=== PATIENT | female | born 1980 | race Caucasian/White ===

== ENCOUNTER 2018-03-02 11:58 | Emergency (ER) | payer OTHER, MEDICAID, SELFPAY ==
[2018-03-02 12:15] VITALS: BP 163/118; PULSE 100; RESP 16; TEMP 36.7; O2SAT 99
[2018-03-02] MEDS: KETOROLAC 60 MG/2 ML VIAL 30 MG IM (12:57)
[2018-03-02 13:54] VITALS: BP 167/108; PULSE 90; RESP 17; O2SAT 98
--- NOTE | 2018-03-02 18:43 | ED.SKABFB ---
HPI - Skin/Abscess/Foreign Bdy <Danya Corcoran, [employer]-BC - Last Filed: 03/02/18 18:48> General Chief complaint: Skin/Abscess/Foreign Body Stated complaint: states hemorhoid pain Time Seen by Provider: 03/02/18 12:31 Source: patient Mode of arrival: ambulatory Limitations: no limitations History of Present Illness HPI narrative: The patient is a 37-year-old female with history of chronic pain who presents with chief complaint of a hemorrhoid and hemorrhoid pain. She states she has been seen at other facility as well as her primary care provider for hemorrhoids and has an appointment with a surgeon coming up. She states she also has genital sores and she saw her scraper loader operator this morning who does not think it is herpes. She presents requesting to have a hemorrhoid removed as well as requesting pain medication. She states she is using steroid cream, antibiotic cream without success. She is not able to purchase a donut to sit on due to cost. She denies any fevers, chest pain, chills, shortness of breath. She does complain of pain and cramps shooting down her legs. She complains of dysuria but no urgency or frequency or flank pain. Related Data Home Medications Medication Instructions Recorded Confirmed buspirone 5 mg PO QAM 03/02/18 03/02/18 buspirone 10 mg PO QPM 03/02/18 03/02/18 clindamycin phosphate 1 applic TOPICAL DIRECTED 03/02/18 03/02/18 levonorgestrel-ethinyl estrad 1 tab PO QPM 03/02/18 03/02/18 [Introvale] metformin 500 mg PO BID 03/02/18 03/02/18 methocarbamol 750 mg PO TID 03/02/18 03/02/18 minocycline 100 mg PO DAILY 03/02/18 03/02/18 nabumetone 500 mg PO BID 03/02/18 03/02/18 omeprazole 40 mg PO DAILY 03/02/18 03/02/18 oxycodone-acetaminophen 1 tab PO BID 03/02/18 03/02/18 prazosin 2 mg PO QPM 03/02/18 03/02/18 pregabalin [Lyrica] 225 mg PO BID 03/02/18 03/02/18 promethazine 25 mg PO PRN PRN 03/02/18 03/02/18 venlafaxine 150 mg PO QPM 03/02/18 03/02/18 Previous Rx's Medication Instructions Recorded hydrocortisone [Proctosol HC] 1 applictn [place] BID-QID PRN #30 gram 03/02/18 Allergies Allergy/AdvReac Type Severity Reaction Status Date / Time Penicillins [PENICILLINS] Allergy Severe THROAT Unverified 07/29/17 11:55 SWELLING hydrocodone [HYDROCODONE] AdvReac Intermediate MIGRAINE, Unverified 07/29/17 11:55 VOMITING tramadol [TRAMADOL] AdvReac Intermediate MIGRAINE, Unverified 07/29/17 11:55 VOMITING Beta-Blockers AdvReac Mild LIGHT Unverified 07/29/17 11:55 (Beta-Adrenergic Bloc HEADACHES [BETA-BLOCKERS (BETA-ADRENERGIC BLOC] Review of Systems <LEANDRO Nj - Last Filed: 03/02/18 18:48> Review of Systems GENERAL: Denies chills, fatigue, malaise, fever, sweats. HEENT: Denies sinus pain, ear pain, sore throat, difficulty swallowing, dizziness. RESPIRATORY: Denies dyspnea, cough, wheezing, hemoptysis, sputum. CARDIOVASCULAR: Denies chest pain, palpitations, orthopnea, edema, GASTROINTESTINAL: Denies nausea, vomiting, abdominal pain, diarrhea, constipation, melena. : See HPI MUSCULOSKELETAL: denies weakness, joint pain, or bony pain SKIN: See HPI NEUROLOGIC: Denies weakness, headache, numbness, change in speech, confusion, seizures, incoordination. PSYCHIATRIC: No concerning psychosocial issues. 12 point review of systems is negative except for those stated above Exam <LEANDRO Nj - Last Filed: 03/02/18 18:48> Narrative Exam Narrative: GENERAL: Obese female lying on stretcher on side HEAD: Atraumatic. Normocephalic. No temporal or scalp tenderness. EYES: Pupils equal round and reactive. Extraocular motions intact. No scleral icterus. No injection or drainage. ENT: Nose without bleeding, purulent drainage or septal hematoma. Throat without erythema, tonsillar hypertrophy or exudate. Uvula midline. Airway patent. NECK: Trachea midline. No JVD or lymphadenopathy. Supple, nontender, no meningeal signs. CARDIOVASCULAR: Regular rate and rhythm without murmurs, gallops, or rubs. RESPIRATORY: Clear to auscultation. Breath sounds equal bilaterally. No wheezes, rales, or rhonchi. GASTROINTESTINAL: Abdomen soft, obese, non-tender, nondistended. No hepato-splenomegaly, or palpable masses. No guarding. Rectal exam performed with his Priscilla RN as wharfmaster. Noted to have external hemorrhoid at approximately 9:00 a.m. position. No erythema noted. EXTREMITIES: No clubbing, cyanosis, or edema. No joint tenderness, effusion, or edema noted. BACK: Nontender without deformity or crepitance. No flank tenderness. NEURO: AOx3. SKIN: Multiple small ulcerations noted in the perianal and genital region. No spreading erythema or discharge noted. Initial Vital Signs Initial Vital Signs: Vital Signs Temperature 98.1 F 03/02/18 12:15 Pulse Rate 100 H 03/02/18 12:15 Respiratory Rate 16 03/02/18 12:15 Blood Pressure 163/118 H 03/02/18 12:15 Pulse Oximetry 99 03/02/18 12:15 <Harmony Huynh DO - Last Filed: 03/03/18 07:58> Initial Vital Signs Initial Vital Signs: Vital Signs Temperature 98.1 F 03/02/18 12:15 Pulse Rate 100 H 03/02/18 12:15 Respiratory Rate 16 03/02/18 12:15 Blood Pressure 163/118 H 03/02/18 12:15 Pulse Oximetry 99 03/02/18 12:15 Course <LEANDRO Nj - Last Filed: 03/02/18 18:48> Orders Ordered: Discontinued Medications Ketorolac Tromethamine (Toradol) 30 mg IM NOW ONE Stop: 03/02/18 12:52 Last Admin: 03/02/18 12:57 Dose: 30 mg Vital Signs - 8 hr 03/02/18 12:15 03/02/18 13:54 Temperature 98.1 F Pulse Rate 100 H 90 Respiratory Rate 16 17 Blood Pressure 163/118 H Blood Pressure [Left Arm] 167/108 H Pulse Oximetry 99 98 <Harmony Huynh DO - Last Filed: 03/03/18 07:58> Orders Ordered: Discontinued Medications Ketorolac Tromethamine (Toradol) 30 mg IM NOW ONE Stop: 03/02/18 12:52 Last Admin: 03/02/18 12:57 Dose: 30 mg Vital Signs - 8 hr 03/02/18 12:15 03/02/18 13:54 Temperature 98.1 F Pulse Rate 100 H 90 Respiratory Rate 16 17 Blood Pressure 163/118 H Blood Pressure [Left Arm] 167/108 H Pulse Oximetry 99 98 MDM - Skin/Abscess/Foreign Bdy <STEVE Nj-BC - Last Filed: 03/02/18 18:48> Lab Data Point of Care Testing Test Results Negative MDM Narrative Medical decision making narrative: Patient presents with chief complaint of hemorrhoid pain. Her hemorrhoid does not appear incredibly inflamed or large at this point time. It appears that most of her pain is coming from her genital sores. Given the etiology, I offered to treat her for herpes simplex. Patient declined treatment at this point in time. We did take a swab to evaluate for a viral culture. She was treated with Toradol in the emergency department. I did give her prescription for rectal steroid. Discussed at length follow up with primary care as well as OBGYN. <Harmony Huynh DO - Last Filed: 03/03/18 07:58> Lab Data Point of Care Testing Test Results Negative Discharge Plan Departure Patient Disposition: Home Clinical Impression: Genital ulcer, female, Elevated blood pressure reading, Acute hemorrhoid Discharge Date/Time: 03/02/18 14:25 Interventions: ED Discharge Assessment Last Done: 03/02/18 14:24 Instructions: DI for Hemorrhoids Activity Restrictions/Additional Instructions: I am giving a prescription for hemorrhoid medication. Your HSV test will come back in 5-7 days. You have declined treatment until of the test results are in. Please follow-up with primary care provider as well as her OBGYN if needed. Prescriptions: New hydrocortisone [Proctosol HC] 2.5 % cream with perineal applicator 1 applictn NE BID-QID PRN (Reason: pain) Qty: 30 RF: 0 No Action buspirone 5 mg tablet 5 mg PO QAM RF: 0 minocycline 100 mg capsule 100 mg PO DAILY RF: 0 venlafaxine 150 mg capsule,extended release 24hr 150 mg PO QPM RF: 0 omeprazole 40 mg capsule,delayed release(DR/EC) 40 mg PO DAILY RF: 0 oxycodone-acetaminophen 5-325 mg tablet 1 tab PO BID RF: 0 methocarbamol 750 mg tablet 750 mg PO TID RF: 0 clindamycin phosphate 1 % gel 1 applic Topical DIRECTED RF: 0 promethazine 25 mg tablet 25 mg PO PRN PRN (Reason: Nausea) RF: 0 metformin 500 mg tablet extended release 24 hr 500 mg PO BID RF: 0 nabumetone 500 mg tablet 500 mg PO BID RF: 0 pregabalin [Lyrica] 225 mg capsule 225 mg PO BID RF: 0 prazosin 2 mg capsule 2 mg PO QPM RF: 0 buspirone 5 mg tablet 10 mg PO QPM RF: 0 levonorgestrel-ethinyl estrad [Introvale] 0.15 mg-30 mcg tablets,dose pack,3 month 1 tab PO QPM RF: 0 Referrals: Provider,Conversion [Non-Staff] - <Harmony Huynh DO - Last Filed: 03/03/18 07:58> Cosign ED Attending Cosmarleneature Attestation: I was immediately available in the department for consultation. Documentation has been reviewed. I agree with assessment and plan.
--- NOTE | 2018-03-02 18:48 | ED_ITS ---
HPI - Skin/Abscess/Foreign Bdy <Danya Corcoran, P[employer] UP-BC - Last Filed: 03/02/18 18:48> General Chief complaint: Skin/Abscess/Foreign Body Stated complaint: states hemorhoid pain Time Seen by Provider: 03/02/18 12:31 Source: patient Mode of arrival: ambulatory Limitations: no limitations History of Present Illness HPI narrative: The patient is a 37-year-old female with history of chronic pain who presents with chief complaint of a hemorrhoid and hemorrhoid pain. She states she has been seen at other facility as well as her primary care provider for hemorrhoids and has an appointment with a surgeon coming up. She states she also has genital sores and she saw her e mail system administrator this morning who does not think it is herpes. She presents requesting to have a hemorrhoid removed as well as requesting pain medication. She states she is using steroid cream, antibiotic cream without success. She is not able to purchase a donut to sit on due to cost. She denies any fevers, chest pain, chills, shortness of breath. She does complain of pain and cramps shooting down her legs. She complains of dysuria but no urgency or frequency or flank pain. Related Data Home Medications Medication Instructions Recorded Confirmed buspirone 5 mg PO QAM 03/02/18 03/02/18 buspirone 10 mg PO QPM 03/02/18 03/02/18 clindamycin phosphate 1 applic TOPICAL DIRECTED 03/02/18 03/02/18 levonorgestrel-ethinyl estrad 1 tab PO QPM 03/02/18 03/02/18 [Introvale] metformin 500 mg PO BID 03/02/18 03/02/18 methocarbamol 750 mg PO TID 03/02/18 03/02/18 minocycline 100 mg PO DAILY 03/02/18 03/02/18 nabumetone 500 mg PO BID 03/02/18 03/02/18 omeprazole 40 mg PO DAILY 03/02/18 03/02/18 oxycodone-acetaminophen 1 tab PO BID 03/02/18 03/02/18 prazosin 2 mg PO QPM 03/02/18 03/02/18 pregabalin [Lyrica] 225 mg PO BID 03/02/18 03/02/18 promethazine 25 mg PO PRN PRN 03/02/18 03/02/18 venlafaxine 150 mg PO QPM 03/02/18 03/02/18 Previous Rx's Medication Instructions Recorded hydrocortisone [Proctosol HC] 1 applictn [place] BID-QID PRN #30 gram 03/02/18 Allergies Allergy/AdvReac Type Severity Reaction Status Date / Time Penicillins [PENICILLINS] Allergy Severe THROAT Unverified 07/29/17 11:55 SWELLING hydrocodone [HYDROCODONE] AdvReac Intermediate MIGRAINE, Unverified 07/29/17 11: 55 VOMITING tramadol [TRAMADOL] AdvReac Intermediate MIGRAINE, Unverified 07/29/17 11:55 VOMITING Beta-Blockers AdvReac Mild LIGHT Unverified 07/29/17 11:55 (Beta-Adrenergic Bloc HEADACHES [BETA-BLOCKERS (BETA-ADRENERGIC BLOC] Review of Systems <LEANDRO Nj - Last Filed: 03/02/18 18:48> Review of Systems GENERAL: Denies chills, fatigue, malaise, fever, sweats. HEENT: Denies sinus pain, ear pain, sore throat, difficulty swallowing, dizziness. RESPIRATORY: Denies dyspnea, cough, wheezing, hemoptysis, sputum. CARDIOVASCULAR: Denies chest pain, palpitations, orthopnea, edema, GASTROINTESTINAL: Denies nausea, vomiting, abdominal pain, diarrhea, constipation, melena. : See HPI MUSCULOSKELETAL: denies weakness, joint pain, or bony pain SKIN: See HPI NEUROLOGIC: Denies weakness, headache, numbness, change in speech, confusion, seizures, incoordination. PSYCHIATRIC: No concerning psychosocial issues. 12 point review of systems is negative except for those stated above Exam <LEANDRO Nj - Last Filed: 03/02/18 18:48> Narrative Exam Narrative: GENERAL: Obese female lying on stretcher on side HEAD: Atraumatic. Normocephalic. No temporal or scalp tenderness. EYES: Pupils equal round and reactive. Extraocular motions intact. No scleral icterus. No injection or drainage. ENT: Nose without bleeding, purulent drainage or septal hematoma. Throat without erythema, tonsillar hypertrophy or exudate. Uvula midline. Airway patent. NECK: Trachea midline. No JVD or lymphadenopathy. Supple, nontender, no meningeal signs. CARDIOVASCULAR: Regular rate and rhythm without murmurs, gallops, or rubs. RESPIRATORY: Clear to auscultation. Breath sounds equal bilaterally. No wheezes , rales, or rhonchi. GASTROINTESTINAL: Abdomen soft, obese, non-tender, nondistended. No hepato- splenomegaly, or palpable masses. No guarding. Rectal exam performed with his Priscilla RN as flat surfacer jewel. Noted to have external hemorrhoid at approximately 9: 00 a.m. position. No erythema noted. EXTREMITIES: No clubbing, cyanosis, or edema. No joint tenderness, effusion, or edema noted. BACK: Nontender without deformity or crepitance. No flank tenderness. NEURO: AOx3. SKIN: Multiple small ulcerations noted in the perianal and genital region. No spreading erythema or discharge noted. Initial Vital Signs Initial Vital Signs: Vital Signs Temperature 98.1 F 03/02/18 12:15 Pulse Rate 100 H 03/02/18 12:15 Respiratory Rate 16 03/02/18 12:15 Blood Pressure 163/118 H 03/02/18 12:15 Pulse Oximetry 99 03/02/18 12:15 <Harmony Huynh DO - Last Filed: 03/03/18 07:58> Initial Vital Signs Initial Vital Signs: Vital Signs Temperature 98.1 F 03/02/18 12:15 Pulse Rate 100 H 03/02/18 12:15 Respiratory Rate 16 03/02/18 12:15 Blood Pressure 163/118 H 03/02/18 12:15 Pulse Oximetry 99 03/02/18 12:15 Course <LEANDRO Nj - Last Filed: 03/02/18 18:48> Orders Ordered: Discontinued Medications Ketorolac Tromethamine (Toradol) 30 mg IM NOW ONE Stop: 03/02/18 12:52 Last Admin: 03/02/18 12:57 Dose: 30 mg Vital Signs - 8 hr 03/02/18 12:15 03/02/18 13:54 Temperature 98.1 F Pulse Rate 100 H 90 Respiratory Rate 16 17 Blood Pressure 163/118 H Blood Pressure [Left Arm] 167/108 H Pulse Oximetry 99 98 <Harmony Huynh DO - Last Filed: 03/03/18 07:58> Orders Ordered: Discontinued Medications Ketorolac Tromethamine (Toradol) 30 mg IM NOW ONE Stop: 03/02/18 12:52 Last Admin: 03/02/18 12:57 Dose: 30 mg Vital Signs - 8 hr 03/02/18 12:15 03/02/18 13:54 Temperature 98.1 F Pulse Rate 100 H 90 Respiratory Rate 16 17 Blood Pressure 163/118 H Blood Pressure [Left Arm] 167/108 H Pulse Oximetry 99 98 MDM - Skin/Abscess/Foreign Bdy <STEVE Nj-BC - Last Filed: 03/02/18 18:48> Lab Data Point of Care Testing Test Results Negative MDM Narrative Medical decision making narrative: Patient presents with chief complaint of hemorrhoid pain. Her hemorrhoid does not appear incredibly inflamed or large at this point time. It appears that most of her pain is coming from her genital sores. Given the etiology, I offered to treat her for herpes simplex. Patient declined treatment at this point in time. We did take a swab to evaluate for a viral culture. She was treated with Toradol in the emergency department. I did give her prescription for rectal steroid. Discussed at length follow up with primary care as well as OBGYN. <Harmony Huynh DO - Last Filed: 03/03/18 07:58> Lab Data Point of Care Testing Test Results Negative Discharge Plan Departure Patient Disposition: Home Clinical Impression: Genital ulcer, female, Elevated blood pressure reading, Acute hemorrhoid Discharge Date/Time: 03/02/18 14:25 Interventions: ED Discharge Assessment Last Done: 03/02/18 14:24 Instructions: DI for Hemorrhoids Activity Restrictions/Additional Instructions: I am giving a prescription for hemorrhoid medication. Your HSV test will come back in 5-7 days. You have declined treatment until of the test results are in. Please follow-up with primary care provider as well as her OBGYN if needed. Prescriptions: New hydrocortisone [Proctosol HC] 2.5 % cream with perineal applicator 1 applictn [place] BID-QID PRN (Reason: pain) Qty: 30 RF: 0 No Action buspirone 5 mg tablet 5 mg PO QAM RF: 0 minocycline 100 mg capsule 100 mg PO DAILY RF: 0 venlafaxine 150 mg capsule,extended release 24hr 150 mg PO QPM RF: 0 omeprazole 40 mg capsule,delayed release(DR/EC) 40 mg PO DAILY RF: 0 oxycodone-acetaminophen 5-325 mg tablet 1 tab PO BID RF: 0 methocarbamol 750 mg tablet 750 mg PO TID RF: 0 clindamycin phosphate 1 % gel 1 applic Topical DIRECTED RF: 0 promethazine 25 mg tablet 25 mg PO PRN PRN (Reason: Nausea) RF: 0 metformin 500 mg tablet extended release 24 hr 500 mg PO BID RF: 0 nabumetone 500 mg tablet 500 mg PO BID RF: 0 pregabalin [Lyrica] 225 mg capsule 225 mg PO BID RF: 0 prazosin 2 mg capsule 2 mg PO QPM RF: 0 buspirone 5 mg tablet 10 mg PO QPM RF: 0 levonorgestrel-ethinyl estrad [Introvale] 0.15 mg-30 mcg tablets,dose pack,3 month 1 tab PO QPM RF: 0 Referrals: Provider,Conversion [Non-Staff] - <Harmony Huynh DO - Last Filed: 03/03/18 07:58> Cosign ED Attending Cosmarleneature Attestation: I was immediately available in the department for consultation. Documentation has been reviewed. I agree with assessment and plan.
--- NOTE | 2018-03-06 16:36 | PC.NURSE ---
Pt states that she is feeling about the same
== END 2018-03-02 14:25 | disposition home or self-care (01) ==
PROVIDERS: Emergency Provider Nurse Practitioner Family
DX: N76.6 Ulceration of vulva (principal); K64.9 Unspecified hemorrhoids; R03.0 Elevated blood-pressure reading, without diagnosis of hypertension
CPT/HCPCS: 81025; 87252; 99283; J1885

== ENCOUNTER 2019-12-25 12:16 | Emergency (ER) | payer OTHER, MEDICAID, SELFPAY ==
[2019-12-25 12:31] VITALS: BP 143/88; PULSE 100; RESP 18; TEMP 36.8; O2SAT 99; BMI 36.9
--- NOTE | 2019-12-25 12:44 | DI.RAD.S_ITS ---
PROCEDURE: XR FINGER LT MIN 2V INDICATIONS: index finger pain, foreignbody?, infection TECHNIQUE: AP hand, 2 views of the 2nd finger(s) acquired. COMPARISON: None. FINDINGS: Bones: No fractures or dislocations. No suspicious bony lesions. Soft tissues: No suspicious soft tissue calcifications. No radiopaque foreign bodies are seen. IMPRESSION: No radiopaque foreign bodies are seen. Dictated by: Luther Spencer M.D. on 12/25/2019 at 12:08 Approved by: Luther Spencer M.D. on 12/25/2019 at 12:08
[2019-12-25] MEDS: LIDO 1%/SOD BICARB 8.4% (10ML) 10 ML SYRINGE INJ (13:00)
--- NOTE | 2019-12-25 13:31 | PC.NURSE ---
practioner at bedside performing suture repair
[2019-12-25] MEDS: TET,DIPH,PERTUSS(ACELL),VAC/PF 0.5 ML SYRINGE IM (13:50)
--- NOTE | 2019-12-25 14:02 | ED_ITS ---
HPI - Extremity Injury (Upper) <TREVA Mercedes - Last Filed: 12/25/19 14:24> General Chief Complaint: Extremity Injury, Upper Stated Complaint: infection on lt pointer finger Time Seen by Provider: 12/25/19 12:27 Source: patient Mode of arrival: Ambulatory Limitations: no limitations History of Present Illness HPI narrative: Is a 39-year-old female, smoker, who has history of anxiety, PTSD, chronic back pain presents to ED with chief complain of left index finger pain for last 8-10 days. Patient reports she injured her affected finger when she was cleaning her boyfriend's car and when she reached under the seat and got a cut under distal finger tip from unknown object. Patient reports pain has been progressively worsening and today's worst. She denies fever, chills, vomi ting but reports nausea and contributes to anxiety. Patient reports pain is 5/10 and it is throbbing and gets worse when it is touched. Patient reports last tetanus immunization was in 2011. Patient reports is able to flexor finger and intact sensation in affected site. Right dominant hand. Patient currently takes metformin but for PCOS and denies having diabetes or other immunocompromised conditions. Related Data Home Medications Medication Instructions Recorded Confirmed buspirone 5 mg PO QAM 03/02/18 03/02/18 buspirone 10 mg PO QPM 03/02/18 03/02/18 clindamycin phosphate 1 applic TOPICAL DIRECTED 03/02/18 03/02/18 levonorgestrel-ethinyl estrad 1 tab PO QPM 03/02/18 03/02/18 [Introvale] metformin 500 mg PO BID 03/02/18 03/02/18 methocarbamol 750 mg PO TID 03/02/18 03/02/18 minocycline 100 mg PO DAILY 03/02/18 03/02/18 nabumetone 500 mg PO BID 03/02/18 03/02/18 omeprazole 40 mg PO DAILY 03/02/18 03/02/18 oxycodone-acetaminophen 1 tab PO BID 03/02/18 03/02/18 prazosin 2 mg PO QPM 03/02/18 03/02/18 pregabalin [Lyrica] 225 mg PO BID 03/02/18 03/02/18 promethazine 25 mg PO PRN PRN 03/02/18 03/02/18 venlafaxine 150 mg PO QPM 03/02/18 03/02/18 diazepam 12/25/19 Previous Rx's Medication Instructions Recorded hydrocortisone [Proctosol HC] 1 applictn GA BID-QID PRN #30 gram 03/02/18 clindamycin HCl 150 mg PO TID 7 Days #21 cap 12/25/19 clindamycin HCl 300 mg PO TID 7 Days #21 cap 12/25/19 Allergies Allergy/AdvReac Type Severity Reaction Status Date / Time Penicillins [PENICILLINS] Allergy Severe THROAT Unverified 07/29/17 11:55 SWELLING hydrocodone [HYDROCODONE] AdvReac Intermediate MIGRAINE, Unverified 07/29/17 11:55 VOMITING tramadol [TRAMADOL] AdvReac Intermediate MIGRAINE, Unverified 07/29/17 11:55 VOMITING Beta-Blockers AdvReac Mild LIGHT Unverified 07/29/17 11:55 (Beta-Adrenergic Bloc HEADACHES [BETA-BLOCKERS (BETA-ADRENERGIC BLOC] Review of Systems <TREVA Mercedes - Last Filed: 12/25/19 14:24> Review of Systems Narrative: General: Denies fever, chills, fatigue, malaise, sweats. Respiratory: Denies dyspnea, cough, wheezing, hemoptysis, sputum. Cardiovascular: Denies chest pain, palpitations, orthopnea, edema. Gastrointestinal: Denies (+) nausea, vomiting, abdominal pain, diarrhea, constipation, melena. Musculoskeletal: See HPI Skin: See HPI Neurologic: Denies weakness, headache, numbness, change in speech, confusion, seizures, incoordination. Psychiatric: Reports feeling anxious. Patient History <TREVA Mercedes - Last Filed: 12/25/19 14:24> Medical History PCOS (polycystic ovarian syndrome) (Acute) Social History Smoking Status: Current every day smoker Smoking Status: Current every day smoker alcohol intake frequency: 0-2 drinks per day Substance Use Type: does not use Exam <TREVA Mercedes - Last Filed: 12/25/19 14:24> Narrative Exam Narrative: General appearance: well developed, well nourished, in mild distress during exam when affected finger was palpated. Head: normocephalic, atraumatic, no scalp lesions, non-tender. ENT: Hearing grossly intact. Airway patent. Neck/Thyroid: neck supple, full range of motion, no visible masses or meningeal signs. No JVD, non-tender without lymphadenopathy. Skin: mild erythema and edematous left distal finger with 0.5 cm linear shallow laceration with light yellowish discoloration surrounding this. Warm to touch in affected finger. Heart: no clubbing, no cyanosis, no edema. S1 and S2 normal. RRR w/o murmurs, clicks, or bruits. Lungs: Breathing even and unlabored. No stridor. No accessory muscles used. Able to speak in full sentences. Chest: normal shape and expansion. Abdomen: non-obese, non-distended. Neurologic: alert and oriented. Cognitive exam, MANAGER SAS and PNS grossly intact on informal exam. Psych: good eye contact, normal affect. Initial Vital Signs Initial Vital Signs: Vital Signs Temperature 98.2 F 12/25/19 12:31 Pulse Rate 100 H 12/25/19 12:31 Respiratory Rate 18 12/25/19 12:31 Blood Pressure 143/88 H 12/25/19 12:31 Pulse Oximetry 99 12/25/19 12:31 Extrem Left upper extremity: hand Details: normal capillary refill, neuromotor exam normal, neurosensory exam normal, tendon exam normal, tenderness Location: of the 2nd digit Location: at the distal phalanx, vascular exam Details: radial pulse present and normal capillary refill, warmth Location: of the 2nd digit, swelling Location: of the 2nd digit Location: at the distal phalanx and laceration (distal index finger pad); no ecchymosis and no crepitus <Harmony Huynh, - Last Filed: 12/26/19 07:09> Initial Vital Signs Initial Vital Signs: Vital Signs Temperature 98.2 F 12/25/19 12:31 Pulse Rate 100 H 12/25/19 12:31 Respiratory Rate 18 12/25/19 12:31 Blood Pressure 143/88 H 12/25/19 12:31 Pulse Oximetry 99 12/25/19 12:31 Procedures <[facility] - Last Filed: 12/25/19 14:24> Abscess I/D I&D #1: Site: hand (left index finger pad) Side (if applicable): left Local Anesthetic: lidocaine 1% and with bicarb Amount of anesthesia used (mL): 1 Technique: incised with #11 blade Amount of fluid expressed (mL): 0.2 Irrigation: Yes Packing used?: none Complications: pain Scores <[facility] - Last Filed: 12/25/19 14:24> GCS [place] coma scale eye opening: Spontaneous [place] coma scale verbal response: Orientated [place] coma scale motor response: Obey commands Emelina coma scale total score: 15 Course <[facility] - Last Filed: 12/25/19 14:24> Orders Ordered: Discontinued Medications Diphtheria/Tetanus/Acell Pertussis (Adacel) 0.5 ml IM .ONCE ONE Stop: 12/25/19 13:22 Last Admin: 12/25/19 13:50 Dose: 0.5 ml Documented by: MAGY Lidocaine/Sodium Bicarbonate (Buffered Lidocaine 10 Ml Syr) 10 ml INJ NOW ONE Stop: 12/25/19 12:45 Last Admin: 12/25/19 13:00 Dose: 10 ml Documented by: MAGY Vital Signs Vital signs: Vital Signs - 8 hr 12/25/19 12:31 Temperature 98.2 F Pulse Rate 100 H Respiratory Rate 18 Blood Pressure 143/88 H Pulse Oximetry 99 <Harmony Huynh DO - Last Filed: 12/26/19 07:09> Orders Ordered: Discontinued Medications Diphtheria/Tetanus/Acell Pertussis (Adacel) 0.5 ml IM .ONCE ONE Stop: 12/25/19 13:22 Last Admin: 12/25/19 13:50 Dose: 0.5 ml Documented by: [email or web address] Lidocaine/Sodium Bicarbonate (Buffered Lidocaine 10 Ml Syr) 10 ml INJ NOW ONE Stop: 12/25/19 12:45 Last Admin: 12/25/19 13:00 Dose: 10 ml Documented by: MAGY Vital Signs Vital signs: Vital Signs - 8 hr 12/25/19 12:31 Temperature 98.2 F Pulse Rate 100 H Respiratory Rate 18 Blood Pressure 143/88 H Pulse Oximetry 99 MDM - Extremity Injury (Upper) <TREVA Mercedes - Last Filed: 12/25/19 14:24> Differential Diagnosis Differential diagnosis: Likely other (Finger abscess, cellulitis, foreign body, fracture, felon) Medical Records Attestation: I reviewed the patient's medical records. Imaging Data XR-Finger LT: Radiologist's Impression: [address] [id number] XRay Report Signed Patient: Apryl Sorensen LMR#: [id number] : 1980Acct:[id number] Age/Sex: 39 / FDate of Service: 12/25/19 Loc: ED Accession Number: [id number] Procedure: XR finger LT min 2V Ordering Provider: Ki Reyes PROCEDURE: XR FINGER LT MIN 2V INDICATIONS: index finger pain, foreignbody?, infection TECHNIQUE: AP hand, 2 views of the 2nd finger(s) acquired. COMPARISON: None. FINDINGS: Bones: No fractures or dislocations. No suspicious bony lesions. Soft tissues: No suspicious soft tissue calcifications. No radiopaque foreign bodies are seen. IMPRESSION: No radiopaque foreign bodies are seen. Dictated by: Luther Spencer M.D. on 12/25/2019 at 12:08 Approved by: Luther Spencer M.D. on 12/25/2019 at 12:08 [facility] Narrative Medical decision making narrative: Left index finger with mild warmth and erythema with light yellowish discoloration surrounding day shallow laceration in finger pad. Patient is able to flex and extend affected finger against resistance. Patient denies fever or chills and she is afebrile in ED. No active drainage appreciated. Increased discomfort when affected site was palpated. I & D affected finger pad and obtained very scant amount of purulent discharge and sent out wound culture which is pending. Please see procedural note. Patient tolerated well the procedure after affected finger was anesthetized by nerve block. Patient started on clindamycin 450 mg t.i.d. dose for 7 day course since patient has anaphylactic allergies to penicillin and reports is not able to tolerate doxycycline due to GI discomfort. Advised warm soak or pack several times a day. Return precautions were discussed with patient and patient advised to follow-up with primary care physician next couple of days for wound recheck. She verbalized understanding in agreement with treatment plan. Discharge Plan Departure Patient Disposition: Home Clinical Impression: Finger infection Discharge Date/Time: 12/25/19 13:56 Instructions: DI for Skin Abscess Activity Restrictions/Additional Instructions: You have been diagnosed with [left index finger abscess and infection. Scant amount of abscess has been drained with I & D and would culture is pending. You have received Tdap vaccination today. Please start clindamycin 450 mg 3 times a day for next 7 days.]. What to do: *Take your medications as directed. Clindamycin has been transmitted to [facility] in [place]. You can take [id number] Tylenol and or Motrin as needed for discomfort. You can take Percocet that you have for severe pain as needed. You can use warm pack or warm soak in clean warm water 2 to 4 times a day as needed to help with healing. *Follow up with your primary care provider in 2-3 days, call for an appointment. Let them know you were seen in the ED and that we asked you to be seen in follow up. *Return to ED if you have any new, worsening, or concerning symptoms, such as [fever, chills, increasing redness/warmth/swelling/pain, chest pain, breathing difficulty, unable to tolerate fluids or any acute concerns]. Prescriptions: New clindamycin HCl 150 mg capsule 150 mg PO TID 7 Days Qty: 21 RF: 0 clindamycin HCl 300 mg capsule 300 mg PO TID 7 Days Qty: 21 RF: 0 No Action diazepam 2 mg tablet RF: 0 buspirone 5 mg tablet 5 mg PO QAM RF: 0 minocycline 100 mg capsule 100 mg PO DAILY RF: 0 venlafaxine 150 mg capsule,extended release 24hr 150 mg PO QPM RF: 0 omeprazole 40 mg capsule,delayed release(DR/EC) 40 mg PO DAILY RF: 0 oxycodone-acetaminophen 5-325 mg tablet 1 tab PO BID RF: 0 methocarbamol 750 mg tablet 750 mg PO TID RF: 0 clindamycin phosphate 1 % gel 1 applic Topical DIRECTED RF: 0 promethazine 25 mg tablet 25 mg PO PRN PRN (Reason: Nausea) RF: 0 metformin 500 mg tablet extended release 24 hr 500 mg PO BID RF: 0 nabumetone 500 mg tablet 500 mg PO BID RF: 0 pregabalin [Lyrica] 225 mg capsule 225 mg PO BID RF: 0 prazosin 2 mg capsule 2 mg PO QPM RF: 0 buspirone 5 mg tablet 10 mg PO QPM RF: 0 levonorgestrel-ethinyl estrad [Introvale] 0.15 mg-30 mcg tablets,dose pack,3 month 1 tab PO QPM RF: 0 hydrocortisone [Proctosol HC] 2.5 % cream with perineal applicator 1 applictn GA BID-QID PRN (Reason: pain) Qty: 30 RF: 0 Referrals: Lily Macdonald DO [Primary Care Provider] - <Harmony Huynh DO - Last Filed: 12/26/19 07:09> Cosign ED Attending Lucyature Attestation: I was immediately available in the department for consultation. Documentation has been reviewed. I agree with assessment and plan.
== END 2019-12-25 13:56 | disposition home or self-care (01) ==
PROVIDERS: Emergency Provider Nurse Practitioner Family; PCP Family Medicine
DX: L08.9 Local infection of the skin and subcutaneous tissue, unspecified (principal); R11.0 Nausea; F41.9 Anxiety disorder, unspecified; Z23 Encounter for immunization
CPT/HCPCS: 73140; 87070; 87075; 87077; 87147; 87186; 87205; 90471; 99284; 90715

== ENCOUNTER 2020-08-04 00:42 | Emergency (ER) | payer OTHER, MEDICAID, SELFPAY ==
[2020-08-04 00:54] VITALS: BP 162/85; PULSE 107; RESP 23; TEMP 36.8; O2SAT 100; BMI 35.5
--- NOTE | 2020-08-04 01:08 | ED_ITS ---
HPI - General Adult General Chief complaint: Extremity Problem,Nontraumatic Stated complaint: HANDS SWOLLEN/ PAINFUL Time Seen by Provider: 08/04/20 01:08 Source: patient Mode of arrival: Ambulatory Limitations: no limitations History of Present Illness HPI narrative: 40-year-old woman with a history of PTSD, depression, anxiety, chronic low back pain, obesity, untreated hypertension, and fibromyalgia presents with worsening bilateral hand pain. She was seen at [facility] on August 01 with complaints of right hand pain and some right shoulder pain. 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 Four days after that injury was the visit to the [facility] where she was diagnosed with hand pain with negative x-rays. She notes that the pain has been getting worse and now is associated with with increased redness and warmth worse on the palmar surface of the right 5th finger but involving the right 4th finger and now the left hand is swollen with erythema extending toward the wrist involving the entire dorsum and palmar surface of the hand. She states she took off some acrylic nails approximately a month ago and she thought that that might be the source of the infection in her hands. While nails do look somewhat abused the cuticles themselves look relatively healthy without significant paronychia infections. She complains of chills and malaise. Mild diffuse abdominal pain nausea but no vomiting or diarrhea. She has no complaints with her legs or feet. She denies recreational drug use. She currently is living out of her car. She denies headache. She denies specific trauma to the hands and does not note bug bites has not been doing gardening work and has no other obvious reason for why her hands are so painful and swollen. Related Data Home Medications Medication Instructions Recorded Confirmed buspirone 5 mg PO QAM 03/02/18 03/02/18 buspirone 10 mg PO QPM 03/02/18 03/02/18 clindamycin phosphate 1 applic TOPICAL DIRECTED 03/02/18 03/02/18 levonorgestrel-ethinyl estrad 1 tab PO QPM 03/02/18 03/02/18 [Introvale] metformin 500 mg PO BID 03/02/18 03/02/18 methocarbamol 750 mg PO TID 03/02/18 03/02/18 minocycline 100 mg PO DAILY 03/02/18 03/02/18 nabumetone 500 mg PO BID 03/02/18 03/02/18 omeprazole 40 mg PO DAILY 03/02/18 03/02/18 oxycodone-acetaminophen 1 tab PO BID 03/02/18 03/02/18 prazosin 2 mg PO QPM 03/02/18 03/02/18 pregabalin [Lyrica] 225 mg PO BID 03/02/18 03/02/18 promethazine 25 mg PO PRN PRN 03/02/18 03/02/18 venlafaxine 150 mg PO QPM 03/02/18 03/02/18 diazepam 12/25/19 Previous Rx's Medication Instructions Recorded hydrocortisone [Proctosol HC] 1 applictn AR BID-QID PRN #30 gram 03/02/18 clindamycin HCl 300 mg PO TID #30 cap 08/04/20 sulfamethoxazole-trimethoprim 1 tab PO BID #20 tab 08/04/20 [Bactrim DS] Allergies Allergy/AdvReac Type Severity Reaction Status Date / Time Penicillins [PENICILLINS] Allergy Severe THROAT Unverified 07/29/17 11:55 SWELLING hydrocodone [HYDROCODONE] AdvReac Intermediate MIGRAINE, Unverified 07/29/17 11:55 VOMITING tramadol [TRAMADOL] AdvReac Intermediate MIGRAINE, Unverified 07/29/17 11:55 VOMITING Beta-Blockers AdvReac Mild LIGHT Unverified 07/29/17 11:55 (Beta-Adrenergic Bloc HEADACHES [BETA-BLOCKERS (BETA-ADRENERGIC BLOC] Review of Systems Review of Systems Narrative: Remainder of complete review of systems is otherwise unremarkable except for that included in the HPI. Patient History Medical History (Updated 08/04/20 @ 05:09 by Arminda Warren MD) Anxiety Chronic back pain GERD (gastroesophageal reflux disease) PCOS (polycystic ovarian syndrome) PTSD (post-traumatic stress disorder) Surgical History (Updated 08/04/20 @ 01:46 by Arminda Warren MD) History of section History of hysterectomy History of repair of dehiscence of vaginal cuff History of tonsillectomy and adenoidectomy Social History Smoking Status: Current every day smoker Smoking Status: Current every day smoker alcohol intake frequency: 0-2 drinks per day Substance Use Type: does not use Exam Narrative Exam Narrative: General: Dramatic affect of behavior, bilateral hand pain moaning enough to make full communication challenging HEENT: Moist mucous membranes, normal sclera with reactive pupils, Respiratory: Lungs are clear to auscultation, no wheezing no rales no rhonchi. Full and symmetrical air movement Cardiac: Regular rate and rhythm no murmurs no bruits Abdomen: Soft, nontender, good bowel tones, no flank pain Skin: Warm and dry, no rashes Neurologic: Grossly neurologically intact with no obvious asymmetries or abnormalities Extremities: Right hand with significant erythema and swelling on the palmar surface of the right small finger extending to the palmar surface of the right ring finger with significant tenderness with extension of the fingers and mild tenderness with flexion and extension of the right wrist. There is no erythema extending up the forearm. Left hand in a glove distribution fullness warmth redness with a demarcating mine at approximately the wrist and no obvious skin breakdown trauma or bug bites. Nails are dystrophic but paronychia do not appear infected. Feet are not involved with findings at all. Her she has some right shoulder tenderness with palpation and range of motion however she has no other large joint pain or active synovitis Psych: Poor insight, difficult communicating with her dramatic level of pain Initial Vital Signs Initial Vital Signs: Vital Signs Temperature 98.2 F 08/04/20 00:54 Pulse Rate 107 H 08/04/20 00:54 Respiratory Rate 23 08/04/20 00:54 Blood Pressure 162/85 H 08/04/20 00:54 Pulse Oximetry 100 08/04/20 00:54 Course Orders Ordered: ED Orders 08/04/20 01:25 C-Reactive Protein Quant Stat Complete Blood Count AUTO DIFF Stat Comprehensive Metabolic Panel Stat Erythrocyte Sedimentation Rate Stat Lactate (Lactic Acid) Stat Magnesium Stat 08/04/20 01:34 Blood Culture Stat 08/04/20 02:41 COVID19 - 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/PCR) Stat 08/04/20 02:58 XR hand LT min 3V Stat XR hand RT min 3V Stat Discontinued Medications Sodium Chloride (Normal Saline 0.9%) 1,000 mls @ 1,000 mls/hr IV BOLUS ONE Stop: 08/04/20 02:21 Last Infusion: 08/04/20 02:45 Dose: 0 mls/hr Documented by: Admin: 08/04/20 01:32 Dose: 1,000 mls/hr Documented by: BOBBY Ceftriaxone Sodium/Dextrose (Rocephin) 2 gm in 50 mls @ 100 mls/hr IV NOW ONE Stop: 08/04/20 03:08 Last Infusion: 08/04/20 03:50 Dose: 0 mls/hr Documented by: Admin: 08/04/20 02:46 Dose: 100 mls/hr Documented by: BOBBY Vancomycin HCl/Dextrose (Vancomycin) 1,500 mg in 300 mls @ 200 mls/hr IV NOW O NE Stop: 08/04/20 04:08 Last Admin: 08/04/20 03:49 Dose: 200 mls/hr Documented by: JENS Ketorolac Tromethamine (Ketorolac 60 Mg/2 Ml Vial) 15 mg IV NOW ONE Stop: 08/04/20 01:23 Last Admin: 08/04/20 01:31 Dose: 15 mg Documented by: BOBBY Ondansetron HCl (Ondansetron 4 Mg/2 Ml Inj) 4 mg IV NOW ONE Stop: 08/04/20 01:23 Last Admin: 08/04/20 01:31 Dose: 4 mg Documented by: BOBBY Vital Signs Vital signs: Vital Signs - 8 hr 08/04/20 00:54 Temperature 98.2 F Pulse Rate 107 H Respiratory Rate 23 Blood Pressure 162/85 H Pulse Oximetry 100 Medical Decision Making Medical Records Medical records reviewed: Yes I reviewed the patient's medical records. Lab Data Lab results reviewed: Yes I reviewed the patient's lab results. Result diagrams: 08/04/20 01:25 08/04/20 01:25 Labs: Lab Results 08/04/20 08/04/20 08/04/20 Range/Units 01:25 01:25 01:25 WBC 14.7 H (4.5-11.0) X10^3/uL RBC 4.19 (4.0-5.2) X10^6/uL Hgb 12.6 (12.0-16.0) g/dL Hct 37.8 (36-46) % MCV 90.2 (80-100) fL MCH 30.1 (26-34) PG MCHC 33.4 (30-36) % RDW 12.6 (11.6-14.8) % Plt Count 377 (150-400) X10^3/uL Neut % (Auto) 66.5 (50-75) % Lymph % (Auto) 25.1 (25-40) % Rogers % (Auto) 7.6 (3-14) % Eos % (Auto) 0.0 L (2-4) % Baso % (Auto) 0.8 (0-2) % Neut # (Auto) 9700 H (7902-0298) /uL Lymph # (Auto) 3700 (0486-6757) /uL Rogers # (Auto) 1100 H (0-900) /uL Eos # (Auto) 0 (0-450) /uL Baso # (Auto) 100 (0-100) /uL ESR 54 H (0-20) MM/HR Sodium (137-145) mmol/L Potassium (3.4-5.1) mmol/L Chloride (98-107) mmol/L Carbon Dioxide (22-32) mmol/L BUN (7-17) mg/dL Creatinine (0.52-1.04) mg/dL Estimated GFR (>60) mL/min BUN/Creatinine Ratio (6-22) Glucose (70-100) mg/dL Lactate (0.7-2.1) mmol/L Calcium (8.4-10.2) mg/dL Magnesium (1.6-2.3) mg/dL Total Bilirubin (0.2-1.3) mg/dL AST (14-36) IU/L ALT (<35) IU/L Alkaline Phosphatase (38-126) U/L C-Reactive Protein 11.7 H (<1.0) mg/dL Total Protein (6.3-8.2) g/dL Albumin (3.5-5.0) g/dL Globulin (1.7-4.1) g/dL Albumin/Globulin Ratio (1.0-2.8) 08/04/20 08/04/20 08/04/20 Range/Units 01:25 01:25 03:50 WBC (4.5-11.0) X10^3/uL RBC (4.0-5.2) X10^6/uL Hgb (12.0-16.0) g/dL Hct (36-46) % MCV (80-100) fL MCH (26-34) PG MCHC (30-36) % RDW (11.6-14.8) % Plt Count (150-400) X10^3/uL Neut % (Auto) (50-75) % Lymph % (Auto) (25-40) % Rogers % (Auto) (3-14) % Eos % (Auto) (2-4) % Baso % (Auto) (0-2) % Neut # (Auto) (7782-1162) /uL Lymph # (Auto) (4561-6775) /uL Rogers # (Auto) (0-900) /uL Eos # (Auto) (0-450) /uL Baso # (Auto) (0-100) /uL ESR (0-20) MM/HR Sodium 137 (137-145) mmol/L Potassium 3.3 L (3.4-5.1) mmol/L Chloride 103 (98-107) mmol/L Carbon Dioxide 24 (22-32) mmol/L BUN 20 H (7-17) mg/dL Creatinine 0.53 (0.52-1.04) mg/dL Estimated GFR > 60.0 (>60) mL/min BUN/Creatinine Ratio 37.7 H (6-22) Glucose 137 H (70-100) mg/dL Lactate 2.4 H 0.8 (0.7-2.1) mmol/L Calcium 9.3 (8.4-10.2) mg/dL Magnesium 1.9 (1.6-2.3) mg/dL Total Bilirubin 0.6 (0.2-1.3) mg/dL AST 18 (14-36) IU/L ALT 18 (<35) IU/L Alkaline Phosphatase 84 (38-126) U/L C-Reactive Protein (<1.0) mg/dL Total Protein 6.4 (6.3-8.2) g/dL Albumin 3.5 (3.5-5.0) g/dL Globulin 2.9 (1.7-4.1) g/dL Albumin/Globulin Ratio 1.2 (1.0-2.8) Imaging Data XR Right hand: Radiologist's Impression: Moderate soft tissue swelling involving the dorsum of the hand and the 5th digit, less so the proximal 4th digit. No soft tissue gas. Kin Riggins MD X-ray hand left: Radiologist's Impression: Mild diffuse soft tissue swelling more so lat erally extending into the thumb and index finger and thenar eminence. No soft tissue gas or radiopaque foreign bodies. Kin Riggins MD [facility] Narrative Medical decision making narrative: 40-year-old woman presents with bilateral hand pain. On the left hand she does describe some minor trauma with lifting with the aid small finger that area is erythematous and edematous and any sort of extension of the fingers is quite painful. Left hand entire hand appears to be cellulitic with no obvious source with area of demarcation at the level of the wrist. No lymphangitis spread. White count is elevated lactic acid is slightly elevated, mild tachycardia and she has significant pain with any movement of the hands particularly any extension of the fingers. Presentation is obviously concerning for infection but source is unclear. Will begin ceftriaxone and vancomycin. Before imaging, care was reviewed with Dr. Vegas, orthopedic surgeon . He recommended x-rays is only at this time. 300am concerns and plans reviewed with patient. At this point she is very reluctant to stay in the hospital overnight. She states that she has a dog in her car, a small poodle who is a service animal, she has had experience with sepsis previously 1 explained her that that was my main concern she still did not want stay in the hospital. When I expressed my concern that the ring finger on the left hand could have an abscess developing and might need to be drained with possibility of loss of fingers if appropriate care is not taken, she still did not want to stay. When I pointed out that she was in so much pain that she could not even roll over in bed her response was that she was able to get to the emergency room and she would be fine. She did agree to antibiotics and a repeat lactic. Will go ahead with the x-rays and continue this discussion after those data points return. 440am Ceftriaxone and vancomycin are being infused. Lactic acid has come down 2.8 after L of fluid. X-rays reveal soft tissue swelling consistent with clinical exam without bony involvement or soft tissue gas. Pt is sleeping comfortably, antibiotics to be complete at 530 510 Patient awoke from sleep, became even more agitated, angry, abusive to staff verbally with continued dramatic affective behavior. She is demanding discharge. Reviewed strong recommendations for continuing to hospital admission to make sure that were appropriately treating the hand infections. I shared with her my concern that the left small finger had a tendon sheath infection and may need surgical intervention. She continued to demand that her IV be removed and that she be allowed to leave. We have asked her to sign Against Medical Advice forms and I have given her prescriptions for both Bactrim DS and clindamycin for 10 days along with clear reassurance that she would be welcome should she return to the ER at any time Discharge Plan Departure Patient Disposition: Left Against Medical Advice Clinical Impression: Cellulitis of hand Instructions: DI for Cellulitis -- Adult Activity Restrictions/Additional Instructions: You have cellulitis of both hands. You still have signs of developing sepsis and I have strongly recommended that you stay in the hospital. I am concerned that the infection on your right small finger will need to be opened up and drained. You received your 1st dose of antibiotics in the emergency room, 2 g of ceftri axone. Please complete under additional course of 2 antibiotics, Bactrim DS and clindamycin. Your blood pressure is also significantly elevated. I understand that your hurting significantly right now but with previous visit your blood pressure is also been elevated. This will need follow-up with a primary care physician Please recognize you can return to the hospital at any time you choose and we will do all we can to care for you Prescriptions: New sulfamethoxazole-trimethoprim [Bactrim DS] 800-160 mg tablet 1 tab PO BID Qty: 20 RF: 0 clindamycin HCl 300 mg capsule 300 mg PO TID Qty: 30 RF: 0 No Action diazepam 2 mg tablet RF: 0 buspirone 5 mg tablet 5 mg PO QAM RF: 0 minocycline 100 mg capsule 100 mg PO DAILY RF: 0 venlafaxine 150 mg capsule,extended release 24hr 150 mg PO QPM RF: 0 omeprazole 40 mg capsule,delayed release(DR/EC) 40 mg PO DAILY RF: 0 oxycodone-acetaminophen 5-325 mg tablet 1 tab PO BID RF: 0 methocarbamol 750 mg tablet 750 mg PO TID RF: 0 clindamycin phosphate 1 % gel 1 applic Topical DIRECTED RF: 0 promethazine 25 mg tablet 25 mg PO PRN PRN (Reason: Nausea) RF: 0 metformin 500 mg tablet extended release 24 hr 500 mg PO BID RF: 0 nabumetone 500 mg tablet 500 mg PO BID RF: 0 pregabalin [Lyrica] 225 mg capsule 225 mg PO BID RF: 0 prazosin 2 mg capsule 2 mg PO QPM RF: 0 buspirone 5 mg tablet 10 mg PO QPM RF: 0 levonorgestrel-ethinyl estrad [Introvale] 0.15 mg-30 mcg tablets,dose pack,3 month 1 tab PO QPM RF: 0 hydrocortisone [Proctosol HC] 2.5 % cream with perineal applicator 1 applictn AR BID-QID PRN (Reason: pain) Qty: 30 RF: 0 Referrals: Lily Macdonald DO [Primary Care Provider] - Stand Alone Forms: Against Medical Advice
[2020-08-04] MEDS: ONDANSETRON 4 MG/2 ML INJ IV (01:31)
[2020-08-04] MEDS: KETOROLAC 60 MG/2 ML VIAL 15 MG IV (01:31)
[2020-08-04] MEDS: SODIUM CHLORIDE 0.9% 1,000 ML 1000 ML IV (01:32)
[2020-08-04 01:38] LABS: Add Manual Diff / Slide Review NO; Basophils Absolute Auto 100 /uL (0-100); Basophils Percent Auto 0.8 % (0-2); Eosinophils Absolute Auto 0 /uL (0-450); Hematocrit 37.8 % (36-46); Hemoglobin 12.6 g/dL (12.0-16.0); Lymphocytes Absolute Auto 3700 /uL (1100-4500); Lymphocytes Percent Auto 25.1 % (25-40); Mean Corpuscular HGB Conc 33.4 % (30-36); Mean Corpuscular Hemoglobin 30.1 PG (26-34); Mean Corpuscular Volume 90.2 fL (80-100); Monocytes Absolute Auto 1100 /uL (0-900); Monocytes Percent Auto 7.6 % (3-14); Neutrophils Absolute Auto 9700 /uL (1500-7000); Neutrophils Percent Auto 66.5 % (50-75); Platelet Count 377 X10^3/uL (150-400); Red Blood Cell Count 4.19 X10^6/uL (4.0-5.2); Red Cell Distribution Width 12.6 % (11.6-14.8); White Blood Cell Count 14.7 X10^3/uL (4.5-11.0)
[2020-08-04 01:50] LABS: Lactate (Lactic Acid) 2.4 mmol/L (0.7-2.1)
[2020-08-04 01:51] LABS: Alanine Aminotransferase 18 IU/L (<35); Albumin 3.5 g/dL (3.5-5.0); Albumin Globulin Ratio 1.2 (1.0-2.8); Alkaline Phosphatase 84 U/L (38-126); Aspartate Aminotransferase 18 IU/L (14-36); BUN Creatinine Ratio 37.7 (6-22); Bilirubin Total 0.6 mg/dL (0.2-1.3); Blood Urea Nitrogen 20 mg/dL (7-17); Calcium 9.3 mg/dL (8.4-10.2); Carbon Dioxide 24 mmol/L (22-32); Chloride 103 mmol/L (98-107); Estimated Glomerular Filt Rate > 60.0 mL/min (>60); Globulin 2.9 g/dL (1.7-4.1); Glucose 137 mg/dL (70-100); HEMOLYSIS < 15 (0-50); Magnesium 1.9 mg/dL (1.6-2.3); Potassium 3.3 mmol/L (3.4-5.1); Sodium 137 mmol/L (137-145); Total Protein 6.4 g/dL (6.3-8.2)
[2020-08-04 02:04] LABS: C-Reactive Protein Quant 11.7 mg/dL (<1.0)
[2020-08-04 02:10] LABS: Erythrocyte Sedimentation Rate 54 MM/HR (0-20)
[2020-08-04] MEDS: CEFTRIAXONE 2 GM/50 ML FROZ.PIGGY IV (02:46)
--- NOTE | 2020-08-04 02:58 | DI.RAD.S_ITS ---
PROCEDURE: XR HAND LT MIN 3V INDICATIONS: infection hand - glvoe distribution TECHNIQUE: 3 views of the hand(s) acquired. COMPARISON: None. FINDINGS: Bones: No fractures or dislocations. Carpal bones are normally aligned. No suspicious bony lesions. Soft tissues: No suspicious soft tissue calcifications. No radiopaque foreign body. IMPRESSION: No acute osseous abnormality or radiopaque foreign body. Dictated by: on 08/04/2020 at 6:00 Approved by: on 08/04/2020 at 6:02
--- NOTE | 2020-08-04 02:58 | DI.RAD.S_ITS ---
PROCEDURE: XR HAND RT MIN 3V INDICATIONS: infection hand, focus palmar surface small finger TECHNIQUE: 3 views of the hand(s) acquired. COMPARISON: None. FINDINGS: Bones: No fractures or dislocations. Carpal bones are normally aligned. No suspicious bony lesions. Soft tissues: No suspicious soft tissue calcifications. Soft tissue swelling overlying the dorsum and ulnar aspect of the hand most prominently along the 5th digit. No radiopaque foreign body. IV catheter noted overlying the distal forearm/wrist. No soft tissue gas. IMPRESSION: Soft tissue swelling without acute osseous abnormality, radiopaque foreign body, or subcutaneous gas. Agree with preliminary report. Dictated by: on 08/04/2020 at 6:02 Approved by: on 08/04/2020 at 6:04
[2020-08-04 03:32] LABS: Reflexed Lactate in 2 Hours Y
--- NOTE | 2020-08-04 03:47 | PC.NURSE ---
Pt refused to give urine sample. Provider ok to start antibiotics before urine sample provided.
[2020-08-04] MEDS: VANCOMYCIN 1,500 MG/300 ML PIGGYBACK 200 MG IV (03:49)
[2020-08-04 04:09] LABS: Lactate 2HR (Lactic Acid Rflx) 0.8 mmol/L (0.7-2.1)
--- NOTE | 2020-08-04 05:22 | PC.NURSE ---
Pt walked to bathroom and then was screaming in there; when I went to open up the door she berated me and cursed incessantly at me demanding i take her IV out right now and let her leave. Dr. Warren aware her Vanco did not finish completely. Pt refused to sign AMA or discharge paperwork.
--- NOTE | 2020-08-04 05:33 | PC.NURSE ---
Pt climbed back into her bed after opting to leave AMA, Now refusing to leave the hospital room saying she wants to stay in the bed to rest. Security called and at bedside. Patient still in room arguing and cursing with staff; staying in the room for another 10 min
== END 2020-08-04 05:26 | disposition left against medical advice (07) ==
PROVIDERS: Emergency Provider Emergency Medicine; PCP Family Medicine
DX: L03.114 Cellulitis of left upper limb (principal); L03.113 Cellulitis of right upper limb; R10.9 Unspecified abdominal pain; R11.0 Nausea
CPT/HCPCS: 36415; 73130; 80053; 83605; 83735; 85025; 85651; 86140; 87040; 96361; 96365; 96367; 96375; 99284; J0696; J1885; J2405